=== PATIENT | male | born 1985 | race Caucasian/White ===

== ENCOUNTER 2018-01-23 02:40 | Emergency (ER) | payer MEDICARE, OTHER, MEDICAID ==
[2018-01-23] MEDS: ONDANSETRON (ODT) 4 MG TAB ODT (03:18)
[2018-01-23] MEDS: HYDROCODONE/APAP (5/325) TAB PO (03:24)
[2018-01-23] MEDS: IPRATROPIUM (NEB) 0.5 MG/2.5 ML AMP HHN (03:29)
[2018-01-23] MEDS: ALBUTEROL 0.083% (NEB) 2.5 MG/3 ML AMP HHN (03:29)
[2018-01-23] MEDS: IBUPROFEN 800 MG TAB PO (04:50)
== END 2018-01-23 05:19 | disposition home or self-care (01) ==
LOC: FTE 02:40
DX: S63.92XA Sprain of unspecified part of left wrist and hand, initial encounter (principal); R06.2 Wheezing; F17.210 Nicotine dependence, cigarettes, uncomplicated; W18.30XA Fall on same level, unspecified, initial encounter; Y92.9 Unspecified place or not applicable
CPT/HCPCS: 29125; 71045; 73130-LT; 94664; 99284-25